=== PATIENT | female | born 1975 | race African-American/Black ===

== ENCOUNTER 2023-05-15 09:02 | Outpatient (OUT) | payer OTHER, SELFPAY ==
[2023-05-15 09:31] LABS: Basophils Absolute Auto 0.1 10^3/uL (0.0-0.1); Basophils Percent Auto 1.3 % (0.2-2.0); Eosinophils Absolute Auto 0.2 10^3/uL (0.0-0.7); Eosinophils Percent Auto 3.6 % (0.9-7.0); Hematocrit 37.7 % (36.0-48.0); Hemoglobin 12.1 g/dL (12.0-16.0); Immature Granulocytes Abs Auto 0.01 10^3/uL (0.00-0.03); Immature Granulocytes Pct Auto 0.2 % (0.0-0.5); Lymphocytes Absolute Auto 2.1 10^3/uL (1.2-3.8); Lymphocytes Percent Auto 38.6 % (20.5-60.0); Mean Corpuscular HGB Conc 32.1 g/dL (29.9-35.2); Mean Corpuscular Hemoglobin 30.3 pg (26.7-34.0); Mean Corpuscular Volume 94.3 fL (81.0-99.0); Mean Platelet Volume 10.6 fL (9.5-13.5); Monocytes Absolute Auto 0.3 10^3/uL (0.3-0.8); Monocytes Percent Auto 5.6 % (1.7-12.0); Neutrophils Absolute Auto 2.7 10^3/uL (1.4-6.5); Neutrophils Percent Auto 50.7 % (43.0-75.0); Platelet Count 315 10^3/uL (150-450); Red Cell Distribution Width 12.3 % (11.0-15.0); White Blood Count 5.3 10^3/uL (4.0-11.0)
[2023-05-15 09:41] LABS: Estimated Average Glucose 97 mg/dL
[2023-05-15 11:33] LABS: Alanine Aminotransferase 26 U/L (14-59); Albumin Globulin Ratio 0.7; Albumin Level 3.2 g/dL (3.4-5.0); Alkaline Phosphatase 61 U/L (46-116); Anion Gap 11.4; Aspartate Amino Transferase 16 U/L (15-37); BUN Creatinine Ratio 9.5; Bilirubin Direct 0.1 mg/dL (0.0-0.2); Bilirubin Total 0.3 mg/dL (0.2-1.0); Calcium 8.7 mg/dL (8.5-10.1); Carbon Dioxide 28.2 mmol/L (21.0-32.0); Chloride 105 mmol/L (98-107); Chol HDL Ratio 3.1; Cholesterol 247 mg/dL (<=200); Estimated GFR (African America >60 (>=60); Estimated GFR (Non-African Ame >60 (>=60); Globulin 4.5 g/dL; Glucose 79 mg/dL (74-106); HDL Cholesterol 79 mg/dL (40-60); Potassium 3.6 mmol/L (3.5-5.1); Sodium 141 mmol/L (136-145); Thyroid Stimulating Hormone 0.818 uIU/mL (0.358-3.740); Total Protein 7.7 g/dL (6.4-8.2); Triglycerides 55 mg/dL (<=150)
== END 2023-05-15 09:03 | disposition home or self-care (01) ==
LOC: LAB 09:07
PROVIDERS: PCP Family Medicine; Visit Provider Family Medicine
DX: Z00.00 Encounter for general adult medical examination without abnormal findings (principal); E55.9 Vitamin D deficiency, unspecified
CPT/HCPCS: 36415; 80048; 80061; 80076; 82306; 83036; 84443; 85025

== ENCOUNTER 2025-01-28 14:47 | Outpatient (REF) | payer OTHER, SELFPAY ==
--- OUTSIDE RECORDS SUMMARY | 2025-01-28 09:00 | XMS_ITS | Encounter Summary ---
Author Organization [facility] Address [address] [place] [address] Care Team Providers Care Public Transit Bus Driver Name Role Phone David Bello MD Primary Care Provider [phone] David Bello MD Unavailable Reason for Visit * ReasonCommentsGynecologic Exam Encounter Details DateTypeDepartmentCare Team (Latest Contact Info)Pmlluzynnzs61/19/2025 9:00 AM ESTProcedure Visit [facility] [address] [place] [address] Yoly Pedroza, LEOBARDO [address] [place] [address] Well woman exam with routine gynecological exam; Encounter for screening mammogram for malignant neoplasm of breast; Pelvic cramping; History of uterine fibroid Social History Tobacco UseTypesPacks/DayYears UsedDateSmoking Tobacco: NeverSmokeless Tobacco: NeverAlcohol UseStandard Drinks/WeekCommentsNever0 (1 standard drink = 0.6 oz pure alcohol)caffeine intake : noneSocial Connection and Isolation PanelAnswer Date RecordedIn a typical week, how many times do you talk on the phone with family, friends, or neighbors?More than three times a week05/14/2023How often do you get together with friends or relatives?More than three times a week 05/14/2023How often do you attend amish or moravian services?More than 4 times per year05/14/2023o you belong to any clubs or organizations such as amish groups, unions, fraternal or athletic groups, or school groups?Yes05/14/2023How often do you attend meetings of the clubs or organizations you belong to?1 to 4 times per year05/14/2023re you , , , , never , or living with a partner?Never akxtbcr6705/14/2023UDIT-CAnswerDate RecordedQ1: How often do you have a drink containing alcohol?Monthly or less 05/14/2023Q2: How many drinks containing alcohol do you have on a typical day when you are drinking?1 or Q3: How often do you have six or more drinks on one occasion?Never05/14/2023Overall Financial Resource Strain (CARDIA) AnswerDate RecordedHow hard is it for you to pay for the very basics like food, housing, medical care, and heating?Somewhat hard05/14/2023HQ-2AnswerDate RecordedPatient Health Questionnaire-2 Xmfsx797[facility] [place] of Occupational Health - Occupational Stress QuestionnaireAnswerDate RecordedDo you feel stress - tense, restless, nervous, or anxious, or unable to sleep at night because yourmind is troubled all the time - these days?Only a fhrvdh7005/14/2023 Exercise Vital SignAnswerDate RecordedOn average, how many days per week do you engage in moderate to strenuous exercise (like a brisk walk)?6 days05/14/2023On average, how many minutes do you engage in exercise at this level?30 min 05/14/2023Hunger Vital SignAnswerDate RecordedWithin the past 12 months, you worried that your food would run out before you got the money to buymore.Never true05/14/2023Within the past 12 months, the food you bought just didn't last and you didn't have money to get more.Never true05/14/2023RAPARE - TransportationAnswerDate RecordedIn the past 12 months, has lack of transportation kept you from medical appointments or from getting medications?No 05/14/2023In the past 12 months, has lack of transportation kept you from meetings, work, or from getting things needed for daily living?05/14/2023 Housing Stability Vital SignAnswerDate RecordedIn the last 12 months, was there a time when you were not able to pay the mortgage or rent on time?No05/14/2023In the last 12 months, how many places have you lived?In the last 12 months, was there a time when you did not have a steady place to sleep or slept in ashelter (including now)?05/14/2023CommentsUnknownSex and Gender InformationValueDate RecordedSex Assigned at NozscAgkfne71/26/2024 11:41 AM EST Legal XilLejrjk32/15/2023 7:19 PM EDTGender GcmjekqsJoxleh67/26/2024 11:41 AM ESTSexual OrientationNot on filedocumented as of this encounter Last Filed Vital Signs Vital SignReadingTime TakenCommentsBlood Vdqybfxj571/7801/28/2025 9:21 AM EST Pulse--Temperature--Respiratory Rate--Oxygen Saturation--Inhaled Oxygen Concentration--Qzklfx637 kg (269 lb)01/28/2025 9:21 AM ESTHeight--Body Mass Index44.0801/12/2025 2:41 PM ESTdocumented in this encounter Progress Notes * Yoly Pedroza NP - 01/28/2025 9:00 AM EST Reason for Appointment: Patient ID: Neil Ma is a 49 y.o. female who presents for Gynecologic Exam Patient presents today for Annual Exam. MEDICATIONS Current Outpatient Medications Medication Instructions ??? DULoxetine (CYMBALTA) 30 mg, Oral, Daily ??? losartan-hydroCHLOROthiazide (Hyzaar) 50-12.5 MG tablet 1 tablet, Oral, Daily ??? terbinafine (LAMISIL) 250 mg, Oral, Daily ALLERGIES Allergies Allergen Reactions ??? Penicillins Unknown PROBLEMS Active Ambulatory Problems Diagnosis Date Noted ??? Arthralgia 05/14/2023 ??? Chronic pain of both knees 05/14/2023 ??? Superficial thrombophlebitis of left leg 05/14/2023 ??? Thyromegaly 05/14/2023 ??? Vitamin D deficiency 05/14/2023 ??? Fibromyalgia 05/14/2023 ??? Benign essential hypertension 05/14/2023 ??? Class 3 severe obesity due to excess calories with serious comorbidity and body mass index (BMI) of 40.0 to 44.9 in adult ([facility]) 05/14/2023 ??? Hypersomnia 05/14/2023 ??? Lipoma of torso 05/14/2023 ??? Cough due to AMOL inhibitor 06/11/2023 ??? Dyslipidemia 02/19/2024 Resolved Ambulatory Problems Diagnosis Date Noted ??? Enlarged uterus 05/14/2023 ??? LLQ pain 05/14/2023 Past Medical History: Diagnosis Date ??? Anemia ??? Headache ??? Hx of being hospitalized ??? Hx of blood clots ??? Seizure disorder (HCC) HISTORY PAST MEDICAL HISTORY SOCIAL HISTORY Past Medical History: Diagnosis Date ??? Anemia ??? Fibromyalgia ??? Headache ??? Hx of being hospitalized emergency blood transfusion ??? Hx of blood clots superficical leg blood clots ??? Seizure disorder (HCC) Social History Tobacco Use ??? Smoking status: Never ??? Smokeless tobacco: Never Substance Use Topics ??? Alcohol use: Never Comment: caffeine intake : none ??? Drug use: Never FAMILY HISTORY Family History Problem Relation Name Age of Onset ??? Diabetes Mother Jerson ??? Arthritis Mother Jerson ??? Hypertension Mother Jerson ??? Diabetes Father Jerson ??? Arthritis Maternal Grandmother Carol ??? Heart disease Paternal Grandfather Michael ??? Heart disease Paternal Grandmother Lindy ??? Asthma Son Ruiz ??? Learning disabilities Sister Akida ??? Mental illness Sister Akida ??? Intellectual Disability Sister Akida SURGICAL HISTORY Past Surgical History: Procedure Laterality Date ??? BREAST SURGERY 2012 breast reduction ??? TUBAL LIGATION 2008 REVIEW OF SYSTEMS Review of Systems: Review of Systems Constitutional: Negative. HENT: Negative. Eyes: Negative. Respiratory: Negative. Cardiovascular: Negative. Gastrointestinal: Negative. Genitourinary: Positive for menstrual problem. Intermittent low pelvic cramping with a history of uterine fibroids Musculoskeletal: Negative. Skin: Negative. Neurological: Negative. All other systems reviewed and are negative. Hematological: Negative. Endocrine: Negative. Allergic/Immunologic: Negative. OBJECTIVE Objective: Physical Exam Constitutional: Appearance: Normal appearance. Genitourinary: Right Adnexa: not tender and no mass present. Left Adnexa: not tender and no mass present. No cervical discharge. Breasts: Breasts are soft. Right: Normal. Left: Normal. HENT: Head: Normocephalic. Nose: Nose normal. Mouth/Throat: Mouth: Mucous membranes are moist. Cardiovascular: Rate and Rhythm: Normal rate. Pulmonary: Effort: Pulmonary effort is normal. Abdominal: General: Bowel sounds are normal. Palpations: Abdomen is soft. Musculoskeletal: General: Normal range of motion. Cervical back: Normal range of motion. Neurological: General: No focal deficit present. Mental Status: She is alert. Skin: General: Skin is warm and dry. Psychiatric: Mood and Affect: Mood normal. Vitals and nursing note reviewed. Exam conducted with a facsimile operator present. Vitals: Estimated body mass index is 40.15 kg/m?? as calculated from the following: Height as of 01/12/25: 5' 5.5 . Weight as of 01/12/25: 245 lb. BP: No LMP recorded. ASSESSMENT & PLAN ICD-10-CM 1. Well woman exam with routine gynecological exam Z01.419 THIN PREP TIS PAP AND HR HPV DNA 2. Encounter for screening mammogram for malignant neoplasm of breast Z12.31 Bilateral screening mammogram Bilateral screening mammogram Assessment/Plan Annual Exam: Patient presents today for an annual exam. Patient states she is doing well and has no complaints. Pap was obtained without difficulty. Discussed Control options with patient to help with bleeding states not as bad it is tolerable. Patient did have ablation she states helped for about 12 years she did have Essure also. Patient did have Fibroid removal also. Patient does have some pelvic cramping we will order testing. Orders Placed This Encounter Procedures ??? Bilateral screening mammogram Follow Up: Patient is to return in one year for annual unless needed otherwise. Documented by Tabatha Guy LPN on behalf of: Yoly Pedroza NP documented in this encounter Plan of Treatment DateTypeDepartmentCare Team (Latest Contact Info)Dkezdxegxqj59/08/2025 11:00 AM ESTOffice Visit [facility] [address] [place] [id number] Nolberto Mcgowan DPM [address] [address] NameTypePriorityAssociated DiagnosesOrder ScheduleBilateral screening mammogram ImagingRoutine Encounter for screening mammogram for malignant neoplasm of breast Expected: 01/28/2025 (Approximate), Expires: 03/30/2026THIN PREP TIS PAP AND HR HPV DNAPathology and CytologyRoutine Well woman exam with routine gynecological exam Ordered: 01/28/2025US Pelvis w/ TVImagingRoutine Pelvic cramping History of uterine fibroid Expected: 01/28/2025, Expires: 07/28/2025documented as of this encounter Visit Diagnoses Diagnosis Well woman exam with routine gynecological exam Routine gynecological examination Encounter for screening mammogram for malignant neoplasm of breast Pelvic cramping History of uterine fibroid documented in this encounter Care Teams Team MemberRelationshipSpecialtyStart DateEnd Date David Bello MD [address] [place] [id number] [facility] - [facility] David Bello MD [address] [place] [phone] PCP - [facility]03/12/24documented as of this encounter
--- OUTSIDE RECORDS SUMMARY | 2025-01-28 14:51 | XMS_ITS | Clinical Summary ---
Author Organization [facility] Address [address] [place] [address] Care Team Providers Care Physicist Acoustics Name Role Phone David Bello MD Primary Care Provider [phone] David Bello MD Unavailable Allergies Active AllergyReactionsCriticalityNoted EkdzFmmsuflmJnujflpynrtKbvzzoh25/04/2024 Medications MedicationSigDispense QuantityRefillsLast FilledStart DateEnd DateStatus losartan-hydroCHLOROthiazide (Hyzaar) 50-12.5 MG tablet Indications:Benign essential hypertensionTAKE 1 TABLET BY MOUTH EVERY DAY 30 tablet 5Active DULoxetine (Cymbalta) [address] capsule Indications:FibromyalgiaTAKE 1 CAPSULE BY MOUTH EVERY DAY 30 capsule 1105Active terbinafine (LamISIL) 250 MG tablet Indications:Onychomycosis of ToenailsTake 1 tablet (250 mg) by mouth Daily 30 tablet 515Active Active Problems ProblemNoted DateDiagnosed YgcfQhwqngcabuka28/10/2024Cough due to AMOL inhibitor 06/11/2023 Assessment & Plan (06/11/2023 2:17 PM EDT): Developed cough due to lisinopril and stop. Change to losartan. Bnpgjmzwdk27/04/2024hronic pain of both knees05/14/2023Superficial thrombophlebitis of left leg05/14/20233202Ibfiljdolgt64/04/2024Vitamin D deficiency 05/14/20236826Yvndizsazgeq73/04/2024 Assessment & Plan (02/19/2024 2:30 PM EST): Pain stable and continue cymbalta. Increase activity and walk regularly. Assessment & Plan (08/20/2023 2:57 PM EDT): Pain stable and continue cymbalta. Increase activity and walk regularly. Assessment & Plan (06/11/2023 2:17 PM EDT): Pain stable and continue cymbalta. Increase activity and walk regularly. Assessment & Plan (05/14/2023 2:25 PM EST): Pain stable and continue cymbalta. Increase activity and walk regularly. Benign essential lnbxccrzpixk39/04/2024 Assessment & Plan (02/19/2024 2:29 PM EST): BP elevated and resume medication. Need to monitor PRN. Discussed DASH diet. Assessment & Plan (08/20/2023 2:57 PM EDT): BP controlled and monitor PRN. Assessment & Plan (06/11/2023 2:17 PM EDT): BP controlled but cough from lisinopril and stop. Try hyzaar. Continue to monitor PRN. Discussed DASH diet. Assessment & Plan (05/14/2023 2:25 PM EST): BP elevated and start treatment for HTN. Monitor PRN. Discussed DASH diet. Class 3 severe obesity due to excess calories with serious comorbidity and body mass index (BMI) of40.0 to 44.9 in adult05/14/2023 Assessment & Plan (02/19/2024 2:29 PM EST): Discussed proper diet and regular aerobic exercise. Recommend Weight Watchers and need to limit calories and smaller portions. Need to increase activity and regular aerobic exercise several days a week for 30 minutes at a time. Assessment & Plan (06/11/2023 2:17 PM EDT): Weight unchanged over the past month. Discussed proper diet and regular aerobic exercise. RecommendWeight Watchers and need to limit calories and smaller portions. Need to increase activity and regular aerobic exercise several days a week for 30 minutes at a time. Assessment & Plan (05/14/2023 2:26 PM EST): Discussed proper diet and regular aerobic exercise. Recommend Weight Watchers and need to limit calories and smaller portions. Need to increase activity and regular aerobic exercise several days a week for 30 minutes at a time. Xdotjtpeang44/04/2024 Assessment & Plan (02/19/2024 2:30 PM EST): Signs of JULIA and check sleep study. Assessment & Plan (06/11/2023 2:17 PM EDT): Signs of JULIA and check sleep study. Assessment & Plan (05/14/2023 2:26 PM EST): Signs of JULIA and check sleep study. Lipoma of torso05/14/2023 Assessment & Plan (05/14/2023 2:26 PM EST): Painful lump and likely lipoma. Refer to surgeon. Resolved Problems ProblemNoted DateDiagnosed DateResolved DateEnlarged LLQ pain Encounters DateTypeDepartmentCare UygmXurmkmyarco38/19/2025 9:00 AM ESTProcedure Visit [facility] [address] [facility] [place] [place] [address] Yoly Pedroza NP Well woman exam with routine gynecological exam; Encounter for screening mammogram for malignant neoplasm of breast; Pelvic cramping; History of uterine pwfnged9501/28/2025amboo flowsheet [facility] [address] [facility] [place] [address] Yoly Pedroza NP 01/12/2025 2:40 PM ESTOffice Visit [facility] [address] [place] [address] Nolberto Mcgowan, DPDaria Pain due to onychomycosis of toenails of both feet (Primary Dx); Izngswpinelvi42/03/2025amboo flowsheet [facility] [address] [place] [address] Nolberto Mcgowan DPM 01/12/20256473Fysaex51/23/2025Refill [facility] [address] [place] [address] David Bello MD Fibromyalgiafrom Last 3 Months Family History Medical HistoryRelationNameCommentsDiabetesFatherAlphonsoArthritisMaternal GrandmotherDelorisArthritisMotherAlphonsoDiabetesMotherAlphonsoHypertension MotherAlphonsoHeart diseasePaternal GrandfatherLorenzoHeart diseasePaternal GrandmotherDorothyIntellectual DisabilitySisterAkidaLearning disabilitiesSister AkidaMental illnessSisterAkidaAsthmaSon 2RohanRelationNameStatusCommentsFather AlphonsoAliveMaternal GrandmotherDelorisAliveMotherAlphonsoAlivePaternal GrandfatherLorenzoAlivePaternal GrandmotherDorothyAliveSisterAkidaAliveSon 13 sonsSon 2RohanAlive Social History Tobacco UseTypesPacks/DayYears UsedDateSmoking Tobacco: NeverSmokeless Tobacco: Never Tobacco Cessation:Counseling Given: Yes Alcohol UseStandard Drinks/WeekCommentsNever0 (1 standard drink = 0.6 oz pure alcohol)caffeine intake : noneSocial Connection and Isolation PanelAnswerDate RecordedIn a typical week, how many times do you talk on the phone with family, friends, or neighbors?More than three times a week05/14/2023How often do you get together with friends or relatives?More than three times a week05/14/2023How often do you attend temple or episcopal services?More than 4 times per year 05/14/2023o you belong to any clubs or organizations such as temple groups, unions, fraternal or athletic groups, or school groups?Yes05/14/2023How often do you attend meetings of the clubs or organizations you belong to?1 to 4 times per year05/14/2023re you , , , , never , or living with a partner?Never wjcgosh5105/14/2023UDIT-CAnswerDate RecordedQ1: How often do you have a drink containing alcohol?Monthly or less05/14/2023Q2: How many drinks containing alcohol do you have on a typical day when you are drinking?1 or Q3: How often do you have six or more drinks on one occasion?Never05/14/2023Overall Financial Resource Strain (CARDIA)AnswerDate RecordedHow hard is it for you to pay for the very basics like food, housing, medical care, and heating?Somewhat hard05/14/2023HQ-2AnswerDate RecordedPatient Health Questionnaire-2 Wwgyn358Finintermountain healthcare [place] of Occupational Health - Occupational Stress QuestionnaireAnswerDate RecordedDo you feel stress - tense, restless, nervous, or anxious, or unable to sleep at night because your mind is troubled all the time - these days?Only a cghooc2905/14/2023Exercise Vital SignAnswerDate RecordedOn average, how many days per week do you engage in moderate to strenuous exercise (like a brisk walk)?6 days05/14/2023On average, how many minutes do you engage in exercise at this level?30 min05/14/2023Hunger Vital SignAnswerDate RecordedWithin the past 12 months, you worried that your food would run out before you got the money to buymore.Never true05/14/2023 Within the past 12 months, the food you bought just didn't last and you didn't have money to get more.Never true05/14/2023RAPARE - TransportationAnswerDate RecordedIn the past 12 months, has lack of transportation kept you from medical appointments or from getting medications?No05/14/2023In the past 12 months, has lack of transportation kept you from meetings, work, or from getting things needed for daily living?No05/14/2023Housing Stability Vital SignAnswerDate RecordedIn the last 12 months, was there a time when you were not able to pay the mortgage or rent on time?No05/14/2023In the last 12 months, how many places have you lived?In the last 12 months, was there a time when you did not have a steady place to sleep or slept in ashelter (including now)?No 05/14/2023CommentsUnknownSex and Gender InformationValueDate RecordedSex Assigned at PsixuHfmbnw64/26/2024 11:41 AM ESTLegal IazXhteux69/15/2023 7:19 PM EDTGender OjfdzhfkAbnrcn16/26/2024 11:41 AM ESTSexual OrientationNot on file Last Filed Vital Signs Vital SignReadingTime TakenCommentsBlood Iqrgsqup627/7801/28/2025 9:21 AM EST Tvyzr600802/19/2024 2:06 PM LSGCtiobokgtvo09.4 ??C (97.5 ??F)02/19/2024 2:06 PM ESTRespiratory Ihds953003/14/2024 2:41 PM ESTOxygen Wlpkwsfhbg23%02/19/2024 2:06 PM ESTInhaled Oxygen Concentration--Xjchlw491 kg (269 lb)01/28/2025 9:21 AM EST Xbrvyj015.4 cm (5' 5.5 )01/12/2025 2:41 PM ESTBody Mass Index44.0801/12/2025 2:41 PM EST Plan of Treatment DateTypeDepartmentCare Team (Latest Contact Info)Vlztejqlrje92/08/2025 11:00 AM ESTOffice Visit [facility] [address] [place] [address] Nolberto Mcgowan DPM [address] [address] Health MaintenanceDue DateLast DoneCommentsCT Zpsdgoerhnhd1976Colonoscopy 1976Colorectal Cancer Djyceplnd1976FIT-DNA1976FIT1976 FOBT1976 4612Ivabzsvblpygy1976Pap Smear01/30/1997Cervical Cancer Qolmdaesf42/21/2006HPV/Wcnrfx1801/30/20061071Cgfyyxhuc45/19/026050/OVID-19 Vaccine ( season)/, 07/09/2020Influenza Vaccine (#1)2024Pneumococcal Vaccine: Pediatrics (0 to 5 Years) and At-Risk Patients (6 to 64 Years)Aged OutNo longer eligible based on patient's age to complete this topic Procedures Procedure NamePriorityDate/TimeAssociated DiagnosisCommentsBI MAMMOGRAM SCREENING TOMOSYNTHESIS KHUXVXDSV80/19/2024 2:02 PM EDT from Last 3 Months or Most Recently Relevant to Health Maintenance Results * Bilateral screening mammogram with tomosynthesis (05/29/2023 2:02 PM EDT) Anatomical RegionLateralityModalityBreastBilateralMammographySpecimen (Source) Anatomical Location / LateralityCollection Method / VolumeCollection Time Received Time05/29/2023 2:02 PM EDT Impressions 05/29/2023 2:07 PM EDT No mammographic evidence of malignancy. Routine follow-up recommended in one year. ?? RESULT CODE: 2 ? Benign Findings(s) ? DENSITY CODE: 2 (approximately 25-50% glandular) ? FOLLOW UP: 1YR ? THE FALSE-NEGATIVE RATE OF MAMMOGRAPHY IS APPROXIMATELY 10%. ? IMAGING OF A PALPABLE ABNORMALITY MUST BE BASED ON CLINICAL GROUNDS. ? PATIENT WAS ENTERED INTO A REMINDER SYSTEM WITH A TARGET DUE DATE FOR THE NEXT MAMMOGRAM. ? Impression dictated by: Cruz Barnes M.D.05/29/2023 2:05 PM ? Dictation Location: [facility] ? Transcribed By: ? PWS ?05/29/23 1405 ? Dictated By: ?Cruz Barnes S DO ?05/29/23 1402 ? Signed By: <Electronically signed by Cruz Barnes, DO in OV> ? 05/29/23 1405 Narrative 05/29/2023 2:07 PM EDT [facility] ?[facility] [place] ?[address] ? [place] [address] ? Mammography Report ? Signed ? Patient: Ma,Latishesyon A ?MR#: ?? [id number] ? : 1975 ?Acct:[id number] ? Age/Sex: 48 / F ?ADM Date: 05/29/23 ? Loc: [place] ?Room: ?Type: REG CLI ?? Attending Dr: David Bello MD ?? Copies to: David Bello MD ? Ordering Provider: David Bello MD ?? Date of Service: 05/29/23 ?? MM/MM screening mammo BI w/CAD: SCREENING ? BILATERAL ??Screening ??Full Field digital mammogram with 3-D imaging. ? Full field digital CC and MLO imaging performed. ??CAD utilized. ? COMPARISON: 04/23/2018, 10/09/2017 ? HISTORY: Annual screening ? BREAST COMPOSITION: Scattered fibroglandular densities of the breast parenchyma identified ? BENIGN BREAST CALCIFICATIONS: Present ? VASCULAR CALCIFICATIONS: None ? DEVELOPING ARCHITECTURAL DISTORTION: None ? DEVELOPING BREAST NODULE: No developing nodule. Stable region of architectural distortion in the posterior portion of the right breast. ? DEVELOPING MALIGNANT CALCIFICATIONS: None ? AXILLARY LYMPH NODES: Normal ? POSTSURGICAL CHANGES: None ? MM/MM screening mammo BI w/CAD ?? Procedure Note Radiology, Radiologist, MD - 05/29/2023 [facility] [place] [address] [place] [address] Mammography Report Signed Patient: Neil Ma AMR#: [id number] : 1975Acct:[id number] Age/Sex: 48 / FADM Date: 05/29/23 Loc: [place] Room:Type: [facility] Attending Dr: David Bello MD Copies to: David Bello MD Ordering Provider: David Bello MD Date of Service: 05/29/23 MM/MM screening mammo BI w/CAD: SCREENING BILATERAL Screening Full Field digital mammogram with 3-D imaging. Full field digital CC and MLO imaging performed. CAD utilized. COMPARISON: 04/23/2018, 10/09/2017 HISTORY: Annual screening BREAST COMPOSITION: Scattered fibroglandular densities of the breastparenchyma identified BENIGN BREAST CALCIFICATIONS: Present VASCULAR CALCIFICATIONS: None DEVELOPING ARCHITECTURAL DISTORTION: None DEVELOPING BREAST NODULE: No developing nodule. Stable region ofarchitectural distortion in the posterior portion of the right breast. DEVELOPING MALIGNANT CALCIFICATIONS: None AXILLARY LYMPH NODES: Normal POSTSURGICAL CHANGES: None MM/MM screening mammo BI w/CAD IMPRESSION: No mammographic evidence of malignancy. Routine follow-up recommended inone year. RESULT CODE: 2 Benign Findings(s) DENSITY CODE: 2 (approximately 25-50% glandular) FOLLOW UP: 1YR THE FALSE-NEGATIVE RATE OF MAMMOGRAPHY IS APPROXIMATELY 10%. IMAGING OF A PALPABLE ABNORMALITY MUST BE BASED ON CLINICAL GROUNDS. PATIENT WAS ENTERED INTO A REMINDER SYSTEM WITH A TARGET DUE DATE FOR THENEXT MAMMOGRAM. Impression dictated by: Cruz Barnes M.D.05/29/2023 2:05 PM Dictation Location: S01 Transcribed By: PWS 05/29/23 1405 Dictated By: Cruz Barnes DO 05/29/23 1402 Signed By: <Electronically signed by Cruz Barnes DO in OV> 05/29/23 1405 Authorizing ProviderResult TypeResult StatusMarc Ace GUAJARDOIMAlberto BI PROCEDURES Final Result from Last 3 Months or Most Recently Relevant to Health Maintenance Insurance Care Teams Team MemberRelationshipSpecialtyStart DateEnd Date David Bello MD [address] [place] [address] [facility] - [facility] David Bello MD [address] [place] [address] PCP - [facility]03/12/24
--- OUTSIDE RECORDS SUMMARY | 2025-01-28 14:51 | XMS_ITS | Clinical Summary ---
Author Organization [facility] Address [address] [place], [place] [address] Care Team Providers Care Salesperson Terrazzo Tiles Name Role Phone David Bello MD Primary Care Provider [phone] Allergies Active AllergyReactionsCriticalityNoted EmgeEfvtoqcwJovclfidgslPyppjnm67/25/2011 Medications MedicationSigDispense QuantityRefillsLast FilledStart DateEnd DateStatus tizanidine (ZANAFLEX) 4 mg ORAL tablet Take by mouth. at bedtime for 1 week, then increase to 2 at bedtime. 60 tablet ctive Additional Information Patient not taking.Reason: Discontinued by Patient, Reported on 12/22/2019 Rizatriptan Benzoate (MAXALT-CRYPTOLOGIC SUPERVISOR) 10 mg ORAL disintegrating tablet Take 1 tablet by mouth. AT ONSET OF HEADACHE. MAY REPEAT AFTER 2 HOURS. DO NOT EXCEED 30 MG PER DAY. 12 tablet 11007/04/2010ctive duloxetine (CYMBALTA) 30 mg ORAL capsule Take 1 capsule by mouth once daily.ctive Active Problems ProblemNoted DateDiagnosed DateStatus post bilateral breast gfamaystl40/16/2012 Breast vpcrmjpjvau99/02/2011ack pain01/11/2011Shoulder pain01/11/20111.2 Migraine with aura, intractable [346.01]07/04/2010 Family History Medical HistoryRelationCommentsHypertensionFatherHypertensionMotherRelation StatusCommentsBrother 1AliveBrother 2AliveFatherAliveMotherAliveSister 1Alive Sister 2AliveSister 3AliveSister 4AliveSon 1AliveSon 2AliveSon 3Alive Social History Tobacco UseTypesPacks/DayYears UsedDateSmoking Tobacco: NeverSmokeless Tobacco: NeverAlcohol UseStandard Drinks/WeekCommentsYes0 (1 standard drink = 0.6 oz pure alcohol)rarePHQ-2AnswerDate RecordedPHQ-2 abnvq726Area Deprivation IndexAnswerDate RecordedNational Score (1-100), lower number is lower riskNot on file02/16/2020State Score (1-10), lower number is lower riskNot on file 02/16/2020Data from: https://www.neighborhoodatlas.medicine.[facility].edu/. Last address used for calculationNot on file02/16/2020CommentsNoSex and Gender InformationValueDate RecordedSex Assigned at HwknqWijvlf37/12/2020 12:32 PM EDTLegal ZleFothzu30/02/2012 8:33 AM ESTGender TcncboipUagojo33/12/2020 12:32 PM EDTSexual TwiiuwpwkvfJvjywplw93/12/2020 12:32 PM EDTOccupationIndustryJob Start DateJob End DateNot on fileNot on fileNot on fileNot on file Last Filed Vital Signs Vital SignReadingTime TakenCommentsBlood Xpwdqtet726/8312/22/2019 1:12 PM EDT Fpvch854312/22/2019 1:12 PM SLDJzqywajhrvl72.4 ??C (97.5 ??F)05/25/2011 1:14 PM EDTRespiratory Pdsd823405/25/2011 3:00 PM EDTOxygen Ndolmliuzr16%05/25/2011 3:00 PM EDTInhaled Oxygen Concentration--Iqkaan631.7 kg (252 lb 14.4 oz)12/22/2019 1:12 PM APJIghbrx581.6 cm (5' 6 )12/22/2019 1:12 PM EDTBody Mass Index40.82 12/22/2019 1:12 PM EDT Plan of Treatment Health MaintenanceDue DateLast DoneCommentsAnxiety Zirtcjeok94/21/1994Depression Odpgvnwmx60/21/1994HIV Kmuleadix36/21/1994DTaP,Tdap,Td Vaccine (1 - Tdap) 01/30/1995Hepatitis B Vaccine (1 of 3 - 19+ 3-dose series)01/30/1995Cervical Cancer Qzzszdhuq86/21/1997Mammogram Tbclrdoit67/21/2016CT Qpmoiubxgyrb96/21/2021 Cologuard (FIT-DNA)01/30/20219178Inrodikxfcv93/21/2021olorectal Cancer Screening 01/30/2021Fecal Occult Blood01/30/2021ipid Qfsivovrm56/21/2021igmoidoscopy 01/30/2021iabetes Pvbcaprfj90Covid-19 Vaccine ( - season)2024Influenza Vaccine (#1)2024Hepatitis C ScreeningCompleted 12/22/2019 Procedures Procedure NamePriorityDate/TimeAssociated DiagnosisComments*HEP C ABRoutine 12/22/2019 2:29 PM EDT Myalgia COMPREHENSIVE METABOLIC QJSDFMcfwach12/12/2020 2:29 PM EDT Myalgia from Last 3 Months or Most Recently Relevant to Health Maintenance Results * HEP REMOTE PANEL BL (12/22/2019 2:29 PM EDT)ComponentValueRef RangeTest Method Analysis TimePerformed AtPathologist SignatureHep B Core Ab, TotalNegative Avhlwgkz36/13/2020 11:13 AM EDTCleveland Clinic LaboratoriesHep C Antibody IA KhvdajerTlpzrclj29/13/2020 11:14 AM EDTCleveland Clinic LaboratoriesHBsAg OggqobaoTgoghqmp80/13/2020 11:13 AM EDTCleveland Clinic LaboratoriesHep B Surface Ab, SzrsSgyihaakSydyvcpu09/13/2020 11:14 AM EDTCleveland Clinic LaboratoriesComment:NEGATIVESpecimen (Source)Anatomical Location / Laterality Collection Method / VolumeCollection TimeReceived EayuWbqyh07/12/2020 2:29 PM EDT1 2:31 PM EDT Narrative Authorizing ProviderResult TypeResult StatusSusaayaka Block MDLABORATORYFinal ResultPerforming OrganizationAddressCity/State/ZIP CodePhone Number [facility] [address] [place] [address] [facility] [address] [place] [address] * (ABNORMAL) COMP METABOLIC PANEL (12/22/2019 2:29 PM EDT)ComponentValueRef RangeTest MethodAnalysis TimePerformed AtPathologist SignatureProtein, Total 7.36.3 - 8.0 g/dL12/22/2019 3:32 PM [facility] LaboratoryAlbumin4.03.9 - 4.9 g/dL12/22/2019 3:32 PM [facility] LaboratoryCalcium9.38.5 - 10.2 mg/dL12/22/2019 3:32 PM [facility] LaboratoryBilirubin, Total0.30.2 - 1.3 mg/dL12/22/2019 3:32 PM [facility] LaboratoryAlkaline Muswabqwkqs19 34 - 123 U/L1 3:32 PM [facility] CluljkzccvEAF5910 - 35 U/L 12/22/2019 3:32 PM [facility] QykhazdlmsEzhzywh5148 - 99 mg/dL12/22/2019 3:32 PM [facility] LaboratoryComment: The [place] Diabetes Association (ADA) provides guidance for cutoff values for fasting glucose and random glucose. The ADA defines fasting as no caloric intake for at least 8 hours. Fasting plasma glucose results between 100 to 125 mg/dL indicate increased risk for diabetes (prediabetes). Fasting plasma glucose results greater than or equal to 126 mg/dL meet the criteria for diagnosis of diabetes. In the absence of unequivocal hyperglycemia, results should be confirmed by repeat testing. In a patient with classic symptoms of hyperglycemia or hyperglycemic crisis, random plasma glucose results greater than or equal to 200 mg/dL meet the criteria for diagnosis of diabetes. Reference: Standards of Medical Care in Diabetes 2016, [place] Diabetes Association. Diabetes Care. 2016.39(Suppl 1). BUN77 - 21 mg/dL12/22/2019 3:32 PM [facility] LaboratoryCreatinine0.740.58 - 0.96 mg/dL12/22/2019 3:32 PM [facility] LesnugfnacTmghcj100752 - 144 mmol/L1 3:32 PM [facility] LaboratoryPotassium3.93.7 - 5.1 mmol/L 12/22/2019 3:32 PM [facility] PzyltxxfpvVwbmbwwj669(H)97 - 105 mmol/L 12/22/2019 3:32 PM [facility] EyhckwuvkhTQ15086 - 30 mmol/L1 3:32 PM [facility] LaboratoryAnion Gap99 - 18 mmol/L1 3:32 PM [facility] PmxysnxgthMYM979 - 38 U/L1 3:32 PM [facility] LaboratoryeGFR->6012/22/2019 3:32 PM [facility] eGFR-All Other Races>60.12/22/2019 3:32 PM [facility] LaboratoryComment: eGFR (Estimated GFR) Units of measure: mL/min/1.73 meters squared eGFR is derived from the reexpressed MDRD Study equation using the following parameters: serum creatinine, age, gender and race. The creatinine assay has been calibrated to be traceable to IDMS. An eGFR <60 mL/min/1.73m2 for >3 months is consistent with chronic kidney disease. Refer to KDOQI guidelines for clinical interpretation. In patients with unstable renal function, e.g. those with acute kidney injury, the eGFR may not accurately reflect actual GFR. Specimen (Source)Anatomical Location / LateralityCollection Method / Volume Collection TimeReceived YvdjZclhf00/12/2020 2:29 PM EDT1 2:31 PM EDT Narrative Authorizing ProviderResult TypeResult StatusSujose Block MDLABORATORYFinal ResultPerforming OrganizationAddressCity/State/ZIP CodePhone Number [facility] [address] [facility] [place] [address], [facility] from Last 3 Months or Most Recently Relevant to Health Maintenance Insurance * Guarantor: Neil Ma AAccount TypeRelation to PatientDate of PhoneBilling GqaqvmsLypifrneNxof1976 [address] [place] [address] Care Teams Team MemberRelationshipSpecialtyStart DateEnd Date David Bello MD PCP - GeneralInternal Medicine11/30/10
--- OUTSIDE RECORDS SUMMARY | 2025-01-28 14:51 | XMS_ITS | CCD ---
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 Gomesrythrocyte distribution width (RBC) [Ratio]12.1 %Mnvkjx32.0-15.0 The [facility] HospitalComment on above:Performed By: #### CBC #### [facility] [address] [place] [address] Dr. Alonzo BurciagaHematocrit (Bld) [Volume fraction]38.4 %Acxbdg65.0-48.0The [facility] HospitalComment on above:Performed By: #### CBC #### [facility] [address] [place] [address] Dr. Alonzo BurciagaHemoglobin (Bld) [Mass/Vol]12.3 g/eSLjblls65.0-16.0The [facility] HospitalComment on above:Performed By: #### CBC #### [facility] [address] [place] [address] Dr. Alonzo Berg #0.01 10e3/ulNormal0.00-0.03The [facility] Hospitalment on above:Performed By: #### CBC #### [facility] [address] [place] [address] Dr. Alonzo Berg %0.2 %Normal0.0-0.5The [facility] HospitalComment on above: Performed By: #### CBC #### [facility] [address] [place] [address] Dr. Alonzo LinMPH #2.3 103/ulNormal1.2-3.8The [facility] HospitalComment on above:Performed By: #### CBC #### [facility] [address] [place] [address] Dr. Alonzo Linmphocytes/100 WBC (Bld)39.2 %Kzjwfj35.5-60.0The [facility] HospitalComment on above:Performed By: #### CBC #### [facility] [address] [place] [address] Dr. Alonzo GatesUAL DIFF REQNONormalThe [facility] HospitalComment on above: Performed By: #### CBC #### [facility] [address] [place] [address] Dr. Alonzo Hollis (RBC) [Entitic mass]30.1 smAusyfm94.7-34.0The [facility] HospitalComment on above:Performed By: #### CBC #### [facility] [address] [place] [address] Dr. Alonzo Hollis (RBC) [Mass/Vol]32.0 g/wGGcmkfy73.9-35.2The [facility] HospitalComment on above:Performed By: #### CBC #### [facility] [address] [place] [address] Dr. Alonzo Hollis (RBC) [Entitic vol]94.1 aDJrnmlk92.0-99.0The [facility] HospitalComment on above:Performed By: #### CBC #### [facility] [address] [place] [address] Dr. Alonzo Willams #0.4 103/ulNormal0.3-0.8The [facility] HospitalComment on above:Performed By: #### CBC #### [facility] [address] [place] [address] Dr. Alonzo Watsonocytes/100 WBC (Bld)6.9 %Normal1.7-12.0The [facility] Comment on above:Performed By: #### CBC #### [facility] [address] [place] [address] Dr. Alonzo Nunn #3.0 103/ulNormal1.4-6.5The [facility] HospitalComment on above:Performed By: #### CBC #### [facility] [address] [place] [address] Dr. Alonzo Wrenutrophils/100 WBC (Bld)50.3 %Aihwmg08.0-75.0The [facility] HospitalComment on above:Performed By: #### CBC #### [facility] [address] [address] [address] Alonzo BurciagaPlatelet mean volume (Bld) [Entitic vol]11.1 fLNormal9.5-13.5The [facility] HospitalComment on above:Performed By: #### CBC #### [facility] [address] [address] [address] Alonzo BurciagaPLT253 103/zkNufmpz595-015Mmf [facility] HospitalComment on above: Performed By: #### CBC #### [facility] [address] [address] [address] Alonzo BurciagaRBC4.08 106/ulCritically low4.20-5.40The [facility] HospitalComment on above:Performed By: #### CBC #### [facility] [address] [address] [address] Alonzo BurciagaWBC6.0 103/ulNormal4.0-11.0The [facility] HospitalComment on above: Performed By: #### CBC #### [facility] [address] [address] [address] Alonzo BurciagaGLYCOHEMOGLOBIN A1Con 71-63-2485QEE RECOMMENDATIONADA THERAPEUTIC TARGET 6.0 - 7.0 ACTION SUGGESTED > 7.0NoGuernsey Memorial HospitalComment on above:Performed By: #### A1C #### [facility] [address] [address] [address] Alonzo BurciagaGlucose [Mass/Vol]100 mg/dLNoGuernsey Memorial HospitalComment on above:Performed By: #### A1C #### [facility] [address] [address] [address] Alonzo BurciagaHbA1c (Bld) [Mass fraction]5.1 %Normal<=6.0[facility] [place] Comment on above:Performed By: #### A1C #### [facility] [address] [address] [address] Alonzo BurciagaLIPID PROFILEon 70-78-3097NQAZ-HDL RATIO NORMSEE BELOWDoctors HospitalComment on above:Result Comment: 3.3 - 4.4 LOW RISK 4.4 - 7.1 AVERAGE RISK 7.1 - 11.0 MODERATE RISK >11.0 HIGH RISKPerformed By: #### LIPID, BMP, LIVER, TSH #### [facility] [address] [address] [address] Alonzo BurciagaCholesterol [Mass/Vol]184 mg/dLNormal<=200[facility] [place] Comment on above:Performed By: #### LIPID, BMP, LIVER, TSH #### [facility] [address] [address] [address] Alonzo BurciagaCholesterol in HDL [Mass/Vol]65 mg/dLDoctors Hospital Comment on above:Performed By: #### LIPID, BMP, LIVER, TSH #### [facility] [address] [address] [address] Alonzo Canelaesterol in LDL [Mass/Vol]105.2 mg/dLDoctors HospitalComment on above:Performed By: #### LIPID, BMP, LIVER, TSH #### [facility] [address] [address] [address] Alonzo Ceballos.total/Cholesterol in HDL [Mass ratio]2.8 {ratio} NormalKing'S Daughters Medical Center OhioComment on above:Performed By: #### LIPID, BMP, LIVER, TSH #### [facility] [address] [place] [address] Dr. Alonzo Lowry NORMAL> or = 60 mg/dl - LOW CARDIOVASCULAR RISK <40 mg/dl - HIGH CARDIOVASCULAR RISKDoctors HospitalComment on above:Performed By: #### LIPID, BMP, LIVER, TSH #### [facility] [address] [address] [address] Alonzo Kumar CALC NORMALSEE BELOWDoctors HospitalComment on above:Result Comment: <100 mg/dl OPTIMAL 100 - 129 mg/dl NEAR OR ABOVE OPTIMAL 130 - 159 mg/dl BORDERLINE HIGH 160 - 189 mg/dl HIGH >190 mg/dl VERY HIGH Performed By: #### LIPID, BMP, LIVER, TSH #### [facility] [address] [address] [address] Alonzo BurciagaTriglyceride [Mass/Vol]69 mg/dLNormal<=150The [facility] Comment on above:Performed By: #### LIPID, BMP, LIVER, TSH #### [facility] [address] [address] [address] Alonzo BurciagaVLDL CALC13.8 mg/dLNormalThe [facility] HospitalComment on above: Performed By: #### LIPID, BMP, LIVER, TSH #### [facility] [address] [address] [address] Alonzo Dunabr PROFILEon 10-92-5733Zkgqcaa [Mass/Vol]3.1 g/dLCritically low3.5-5.0The [facility] HospitalComment on above:Performed By: #### LIPID, BMP, LIVER, TSH #### [facility] [address] [address] [address] Alonzo BurciagaAlbumin/Globulin [Mass ratio]0.7 {ratio}NormalThe [facility] HospitalComment on above:Performed By: #### LIPID, BMP, LIVER, TSH #### [facility] [address] [address] [address] Alonzo Rodriguez [Catalytic activity/Vol]57 U/LZcyrpy47-014Chg [facility] HospitalComment on above:Performed By: #### LIPID, BMP, LIVER, TSH #### [facility] [address] [address] [address] Alonzo Moffett [Catalytic activity/Vol]22 U/LNormal9-52The [facility] Comment on above:Performed By: #### LIPID, BMP, LIVER, TSH #### [facility] [address] [address] [address] Alonzo Daley [Catalytic activity/Vol]19 U/FJfdrtp62-49Ppz [facility] HospitalComment on above:Performed By: #### LIPID, BMP, LIVER, TSH #### [facility] [address] [address] [address] Alonzo Ramirez, CONJUGATED<0.6Sgsvwf3.0-0.3The [facility] HospitalComment on above:Performed By: #### LIPID, BMP, LIVER, TSH #### [facility] [address] [address] [address] Alonzo BurciagaBilirubin [Mass/Vol]0.3 mg/dLNormal0.2-1.3TSt. [facility] Comment on above:Performed By: #### LIPID, BMP, LIVER, TSH #### [facility] [address] [place] [address] Dr. Alonzo BurciagaGlobulin (S) [Mass/Vol]4.3 g/dLNormalThe [facility] HospitalComment on above:Performed By: #### LIPID, BMP, LIVER, TSH #### [facility] [address] [place] [address] Dr. Alonzo BurciagaProtein [Mass/Vol]7.4 g/dLNormal6.1-8.2[facility] [place] Comment on above:Performed By: #### LIPID, BMP, LIVER, TSH #### [facility] [address] [place] [address] Dr. Alonzo BurciagaPROF CHEM 8 (BAS METB)on 92-26-7795Tkchs gap [Moles/Vol]11.6 mmol/LNormalKing'S Daughters Medical Center OhioComment on above:Performed By: #### LIPID, BMP, LIVER, TSH #### [facility] [address] [place] [address] Dr. Alonzo BurciagaCalcium [Mass/Vol]8.7 mg/dLNormal8.4-10.2[facility] [place] Comment on above:Performed By: #### LIPID, BMP, LIVER, TSH #### [facility] [address] [place] [address] Dr. Alonzo BurciagaChloride [Moles/Vol]106 mmol/ERhlchg46-350Ukz [facility] Comment on above:Performed By: #### LIPID, BMP, LIVER, TSH #### [facility] [address] [place] [address] Dr. Alonzo BurciagaCO2 [Moles/Vol]27.2 mmol/XGdjzuh12.0-30.0[facility] [place] Comment on above:Performed By: #### LIPID, BMP, LIVER, TSH #### [facility] [address] [address] [address] Alonzo BurciagaCreatinine [Mass/Vol]0.66 mg/dLNormal0.52-1.04The [facility] HospitalComment on above:Performed By: #### LIPID, BMP, LIVER, TSH #### [facility] [address] [address] [address] Alonzo GomesGFR-AF VINCENTIAN>60Normal>=60The [facility] HospitalComment on above:Performed By: #### LIPID, BMP, LIVER, TSH #### [facility] [address] [address] [address] Alonzo Vieyra-NON AF VINCENTIAN>60Normal>=60The [facility] HospitalComment on above:Performed By: #### LIPID, BMP, LIVER, TSH #### [facility] [address] [place] [address] Dr. Alonzo BurciagaGlucose [Mass/Vol]82 mg/zTChdbxh57-271LdmKing'S Daughters Medical Center [place] Comment on above:Performed By: #### LIPID, BMP, LIVER, TSH #### [facility] [address] [place] [address] Dr. Alonzo BurciagaPotassium [Moles/Vol]3.8 mmol/LNormal3.4-5.0[facility] [place] Comment on above:Performed By: #### LIPID, BMP, LIVER, TSH #### [facility] [address] [place] [address] Dr. Alonzo Garciadium [Moles/Vol]141 mmol/KOmhnin277-754XyzKing'S Daughters Medical Center [place] Comment on above:Performed By: #### LIPID, BMP, LIVER, TSH #### [facility] [address] [place] [address] Dr. Alonzo BurciagaUrea nitrogen [Mass/Vol]7.0 mg/dLNormal7.0-17.0The [facility] HospitalComment on above:Performed By: #### LIPID, BMP, LIVER, TSH #### [facility] [address] [place] [address] Dr. Alonzo Diaz nitrogen/Creatinine [Mass ratio]10.6 mg/mgDoctors HospitalCommclaren central [place] on above:Performed By: #### LIPID, BMP, LIVER, TSH #### [facility] [address] [place] [address] Dr. Alonzo PadillaHoayaka 84-45-6154BLK0.502 uIU/mLNormal0.470-4.680[facility] [place]Commclaren [facility] [place] on above:Performed By: #### LIPID, BMP, LIVER, TSH #### [facility] [address] [place] [address] Dr. Alonzo GILLProMedica Toledo HospitalCommclaren [facility] [place] on above: Result Comment: <0.34 UIU/ml HYPERTHYROID 0.34-5.60 UIU/ml EUTHYROID >5.60 UIU/ml HYPOTHYROIDPerformed By: #### LIPID, BMP, LIVER, TSH #### [facility] [address] [place] [address] Dr. Aolnzo BurciagaVITAMIN D 25 OHon 40-04-1668QLD D 25-OH<19.8Doctors HospitalCommclaren [facility] [place] on above:Performed By: #### VITAD #### [facility] [address] [place] [address] Dr. Alonzo Whiteside [facility] HospitalCommcl[facility] [place] on above: Result Comment: <20 ng/mL Vit D deficient 20 - <30 ng/mL Vit D insufficient 30 - 100 ng/mL Vit D sufficient >100 ng/mL Potential ToxicityPerformed By: #### VITAD #### [facility] [address] [place] [address] Dr. Alonzo Flores 05-07-9764FQEYALBXJTP ID: [id number] Author: Tracy Arnold (Tech) Service: Radiology Author Type: Hospice Care Consultant Type: Progress Notes Filed: 12/22/2019 2:00 PM Note Text: Radiology Service Progress Note PATIENT NAME: Neil Ma DATE OF SERVICE: December 22, 2019 TIME: 1:59 PM PATIENT IDENTITY VERIFICATION COMPLETED USING TWO (2) IDENTIFIERS: Name and Date of confirmed by patient verbally and Name and Date of confirmed by identification band. FALL SCREENING: Has the patient had 2 falls in the last year or 1 fall with injury or currently using an Ambulatory Assistive Device (Walker, Cane, Wheelchair, Crutches, etc.)? No PATIENT GENDER DATA: Female. status: : No status: NO. PATIENT RELEVANT IMPLANT DATA REVIEWED: Not Applicable RADIOLOGY DEPARTMENT: General X-ray: Exam(s) Completed: Spine X-Ray(s): Lumbar AP / LAT / L5-S1 PERIPHERAL IV DATA: Not applicable SIGNED BY: Tracy Arnold December 22, 2019 1:59 [facility]/LAT/L5-S1on 93-25-7522PE LUMBAR 3V AP/LAT/L5-S1* * *Final Report* * * DATE OF EXAM: Dec 22 2019 2:10PM VHX [id number] - XR LUMBAR 3V AP/LAT/L5-S1 / PROCEDURE REASON: Midline low back pain without sciatica, unspecified chronicity * * * * Physician Interpretation * * * * HISTORY: Midline low back pain without sciatica, unspecified chronicity . MIDLINE LOW BACK PAIN WITHOUT SCIATICA TECHNIQUE: XR LUMBAR 3V AP/LAT/L5-S1 Laterality: NOT APPLICABLE Number of different views (projections): 3 COMPARISON: None available. RESULT: Counting reference: Lumbosacral junction. For the purposes of this report, L4-5 is considered the level of the iliac crest and there are 5 lumbar-type vertebrae. Anatomic Variants: None. There is no evidence of acute spinal fracture or dislocation. There is normal alignment of the lumbar spine. The disc spaces are preserved. The facet joints are unremarkable. No other significant abnormality. IMPRESSION: Normal lumbar spine. Screen Making Technician: LAUREN Transcribe Date/Time: Dec 22 2019 4:17P Dictated by : THEODORA BENNETT MD This examination was interpreted and the report reviewed and electronically signed by: THEODORA BENNETT MD on Dec 22 2019 4:19PM EST [id number] Medical Center Clare Vital Signs Date TimeVital SignValuePerforming PqpemyyltGrutfdjh84-17-5676 14:41-0500Body ydmskq578.4 cmNolberto Mcgowan DPM Work Phone: [facility] CenterNfdldnmzik83-52-9511 14:41-0500Body mass index (BMI) [Ratio]40.15 kg/q2LcvmavkiNolberto Mcgowan DPM Work Phone: [facility] CenterUrcbqbuhni63-13-3648 14:41-0500Body uhqfeo775.13 kgNolberto Mcgowan DPM Work Phone: [facility] CenterPhbfmdvfbo45-80-4451 14:41-0500Respiratory rate18 /minNolberto Mcgowan DPM Work Phone: [facility] CenterNcjslfpiji73-99-8588 21:30-0400Heart rate78 /min Marciano Sarah [facility]03-28-2025 21:30-9781QaR3% (BldA) [Mass fraction]98 %Marciano Sarah [facility]03-28-2025 21:30-0400 Diastolic blood eqgvkqjw65 mm[Hg]Marciano Sarah [facility]03-28-2025 21:30-0400Mean blood tchzdwca40 mm[Hg]Marciano Sarah [facility]03-28-2025 21:30-0400 Systolic blood zfcisqtr772 mm[Hg]Marciano Sarah [facility]03-28-2025 21:09-0400Body tlmfvukvdgd86.24 [degF]Marciano Sarah [facility]03-28-2025 21:09-0400 Diastolic blood frxmoemg56 mm[Hg]Marciano Sarah [facility]03-28-2025 21:09-0400Heart rate81 /minMarciano Keara [facility]03-28-2025 21:09-0400 Respiratory rate20 /Mayra Sarah [facility]03-28-2025 21:09-8107VdC8% (BldA) [Mass fraction]99 %Marciano Sarah [facility]03-28-2025 21:09-0400 Systolic blood sthvgdpa952 mm[Hg]Marciano Sarah [facility]03-28-2025 18:57-0400Body .64 cmDavid Welsh MD Work Phone: [phone]03-28-2025 18:57-0400 Body txinshtkfzp93.5 [degF]David Welsh MD Work Phone: [phone]03-28-2025 18:57-0400 Body uybhuj267.15 kgDavid Welsh MD Work Phone: [phone]03-28-2025 18:57-0400 Diastolic blood dmlxmydp98 mm[Hg]David Welsh MD Work Phone: [phone]03-28-2025 18:57-0400 Heart rate96 /Rey Welsh MD Work Phone: [phone] [place], [place] 7743203-28-2025 18:57-0400 Respiratory rate20 /Rey Welsh MD Work Phone: [phone] [place], [place] 7743203-28-2025 18:57-0400 SaO2% (BldA) [Mass fraction]99 %David Welsh MD Work Phone: [phone] [place], [place] 7743203-28-2025 18:57-0400 Systolic blood vqcekjbw332 mm[Hg]David Welsh MD Work Phone: [phone]12-10-2024 14:06-0500 Body ajoemf226.6 cmDavid Welsh MD Work Phone: noCox BransonQvniocqbwn26-97-1654 14:06-0500Body mass index (BMI) [Ratio]42.93 kg/m2David Welsh MD Work Phone: noCox BransonHzclkztqyk42-94-6644 14:06-0500Body temperature 97.5 [degF]David Welsh MD Work Phone: noCox BransonNkjloeklwz20-98-6519 14:06-0500Body gteeey355.66 kgDavid Welsh MD Work Phone: noCox BransonBefpurgyop89-73-1288 14:06-0500Diastolic blood lfsbyikq19 mm[Hg]David Welsh MD Work Phone: noCox BransonMhbyuusgqc57-52-5213 14:06-0500Heart rate42 /min David Welsh MD Work Phone: noCox BransonOssjsuwqmw77-96-3921 14:06-0500Respiratory rate22 /minDavid Welsh MD Work Phone: noCox BransonDbxmtfnusb82-37-5258 14:06-5570TvC8% (BldA) [Mass fraction]97 %David Welsh MD Work Phone: noCox BransonPwxctnrfwq83-50-6052 14:06-0500Systolic blood iziufrqn106 mm[Hg]David Welsh MD Work Phone: [facility] Encounters Encounter DateEncounter TypeCare ProviderFacilityStart: 01-12-2025 End: 68-83-8511Ebzpog outpatient new 30 minutesNolberto Mcgowan DPM Work Phone: [facility]ella Amaro PodiatryComment on above:Pain due to onychomycosis of toenails of both feet (Primary Dx); OnychomycosisStart: 01-12-2025 End: 28-96-2222nlxnqqmzhhDDDFHLDH A BROWNNot AvailableStart: 01-12-2025 End: 24-50-9725Xzekezken Mcgowan DPM Work Phone: [facility]aro PodiatryStart: 01-12-2025 End: 57-04-8381Vgjclpken Mcgowan DPM Work Phone: [facility] Amaro PodiatryStart: 06-06-2024 End: 93-98-2576Hipckcvxa department patient visitnayla [facility] Start: 06-06-2024 End: 77-63-6222Wwupqpsxa department patient visitDavid Welsh MD Work Phone: [facility] Work Phone: Start: 02-19-2024 End: 06-01-4409guutynuijpXVOK NADERERNot AvailableStart: 02-19-2024 End: 90-96-7177Xvidac Renetta Welsh MD Work Phone: [facility] FMStart: 02-19-2024 End: 05-53-9955Dhaswwsamantha Welsh MD Work Phone: [facility] FMStart: 02-19-2024 End: 52-96-9305Ujmgvm outpatient visit 25 minutesDavid Welsh MD Work Phone: [facility] CWM FMComment on above:Benign essential hypertension (CMS/HCC) (Primary Dx); Fibromyalgia; Class 3 severe obesity due to excess calories with serious comorbidity and body mass index (BMI) of40.0 to 44.9 in adult (CMS/HCC); Hypersomnia; Dyslipidemia (CMS/HCC); Encounter for long-term (current) use of medications; Colon cancer screeningStart: 05-29-2023 End: 30-79-4512sultefwsqmGHRaine Welsh Work Phone: [facility] Work Phone: Start: 05-29-2023 End: 36-57-0990Czjatuy encounter procedureMD David Welsh Work Phone: [facility] Work Phone: Start: 11-29-2021 End: 69-66-6703ybwukmotkoPI DAVID Otto NADERERFacility:O6Kchfx: 29-82-2410Oxwpdzpts for general adult medical examination without abnormal findingsDR DAVID WELSH [facility]Start: 04-19-2021 End: 05-59-2772bsgxrqccrwDC DAVID Otto NADERERFacility:M4Qourg: 04-19-2021 End: 53-92-5275Sxjzexuzd for general adult medical examination without abnormal findingsDR DAVID Otto NADDARRENRFacility:H1 Procedures DateProcedureProcedure DetailPerforming ClinicianStart: 05-29-2023 End: 67-06-8552Hzatppeks mammography of bilateral breastsMD David Welsh Work Phone: Plan of Treatment DateCare ActivityDetailAuthorStart: 01-28-2025 End: 38-77-0368Kxqeoak encounter hvlkpnazt95/19/2025 9:00 AM EST Procedure Visit ANSELMO CAMEJO [address] [place] [id number] Yoly Pedroza, LEOBARDO [address] [place] [phone] NOMKoko [place] OBGYNStart: 01-12-2025 End: 13-67-7121Ifnhpad encounter hbwoswngx06/03/2025 2:40 PM EST Office Visit [facility] [address] [place] [address] Nolberto Mcgowan DPM [address] [address] [facility] Comment on above:ArrivedStart: 01-12-2025 End: 42-39-1971Caxlses aminotransferase [Enzymatic activity/volume] in Serum or PlasmaALANINE AMINOTRANSFERASE Lab Routine Onychomycosis Expected: 01/12/2025 (Approximate), Expires: 02/11/2025NO[facility] HealthcareComment on above:Expected: 01/12/2025 (Approximate), Expires: 02/11/2025Start: 01-12-2025 End: 63-63-9557Pyzumooez aminotransferase [Enzymatic activity/volume] in Serum or PlasmaASPARTATE AMINO TRANSFERASE Lab Routine Onychomycosis Expected: 01/12/2025 (Approximate), Expires: 02/11/2025[facility] Work Phone: Comment on above:Expected: 01/12/2025 (Approximate), Expires: 02/11/2025Start: 17-50-0498TYVDE-19 Vaccine ( season)COVID- 19 Vaccine ()[facility] HealthcareStart: 99-94-7163Fagnhwkpg vaccinationInfluenza Vaccine (#1)[facility] HealthcareStart: 92-33-8953Byzhxv scan of lower limb veinsUS venous duplex LE [facility] Centertart: 12-53-0045BnilemdtlMemorial Hospitaltart: 30-87-5139Vlllwwheq for malignant neoplasm of breastMammogramNOAZ HealthcareStart: 03-24-2024 End: 83-69-5403Goaugng encounter rwcjzywhy09/13/2025 1:45 PM EST Office Visit [facility] [address] [place] [phone] David Welsh MD [address] [place] [phone] NOMKoko CASTRO FMStart: 02-19-2024 End: 34-17-8188Nvdyq metabolic 1998 panel - Serum or PlasmaBasic metabolic panel Lab Routine Benign essential hypertension (CMS/HCC) Expected: 02/19/2024 (Appr oximate), Expires: 02/18/2025[facility] Work Phone: Comment on above:Expected: 02/19/2024 (Approximate), Expires: 02/18/2025Start: 02-19-2024 End: 45-50-8917YQW W Auto Differential panel - BloodCBC and differential Lab Routine Encounter for long-term (current) use of medications Expected: 02/09 (Approximate), Expires: 02/18/2025[facility] HealthcareComment on above: Expected: 02/19/2024 (Approximate), Expires: 02/18/2025Start: 02-19-2024 End: 77-98-8478Cgggdpcxtx A1c/Hemoglobin.total in BloodHemoglobin A1c Lab Routine Class 3 severe obesity due to excess calories with serious comorbidity and body mass index (BMI) of 40.0 to 44.9 in adult (CMS/HCC) Expected: 02/19/2024 (Approximate), Expires: 02/18/2025[facility] HealthcareComment on above: Expected: 02/19/2024 (Approximate), Expires: 02/18/2025Start: 02-19-2024 End: [id number] function 2000 panel - Serum or PlasmaHepatic function panel Lab Routine Encounter for long-term (current) use of medications Expected: 02/19/2024 (Approximate), Ex[facility]: [facility]/2025[facility] HealthcareComment on above: Expected: 02/19/2024 (Approximate), Expires: 02/18/2025Start: 02-19-2024 End: 46-74-6587Cprcg 1996 panel - Serum or PlasmaLipid panel Lab Routine Class 3 severe obesity due to excess calories with serious comorbidity and body mass index (BMI) of 40.0 to 44.9 in adult (CMS/HCC) Dyslipidemia (CMS/HCC) Expected: 02/19/2024(Approximate), Expires: 02/18/2025[facility] HealthcareComment on above: Expected: 02/19/2024 (Approximate), Expires: 02/18/2025Start: 02-19-2024 End: 13-20-5061BAI W/REFLEX TO FT4TSH W/REFLEX TO FT4 Lab Routine Class 3 severe obesity due to excess calories with serious comorbidity and body mass index (BMI) of 40.0 to 44.9 in adult (CMS/HCC) Expected: 02/19/2024 (Approximate), Expires: 02/18/2025[facility] HealthcareComment on above:Expected: 02/19/2024 (Approximate), Expires: 02/18/2025Start: 67-79-4700Tdqxfhbdo vaccination Influenza Vaccine (#1)[facility]Start: 43-09-8841Ftijbkglq for malignant neoplasm of cervixNOMS HealthcareStart: 67-67-1921Uwyjdzyye for malignant neoplasm of cervixPap SmearNOAZ HealthcareStart: 68-81-1191Rnynmgyap B Vaccines (1 of 3 - 19+ 3-dose series)Hepatitis B Vaccines (1 of 3 - 19+ 3-dose series) [facility]Start: 44-84-9363OVzF/Tdap/Td Vaccines (1 - Tdap)DTaP/Tdap/Td Vaccines (1 - Tdap)[facility]Start: 36-83-4491HBH Vaccines (1 of 1 - Standard series)MMR Vaccines (1 of 1 - Standard series)[facility] HealthcareStart: 15-80-9143Ighgoqdmi for malignant neoplasm of colonNOAZ Healthcare Albumin/Globulin ratioShelby Memorial HospitalAnion gap measurement [facility] HospitalaPTT in Platelet poor plasma by Coagulation assayShelby Memorial HospitalBasophils [#/volume] in Blood by Automated countShelby Memorial HospitalBasophils/100 leukocytes in Blood by Automated countShelby Memorial HospitalEosinophils/100 leukocytes in Blood by Automated countShelby Memorial HospitalErythrocyte distribution width [Ratio] by Automated countShelby Memorial Hospital Erythrocytes [#/volume] in [facility] AndersonGlobulin [Mass/volume] in SerumShelby Memorial HospitalHematocrit [Volume Fraction] of [facility] AndersonHemoglobin [Mass/volume] in [facility] AndersonINR in Platelet poor plasma by Coagulation assayShelby Memorial HospitalLeukocytes [#/volume] corrected for nucleated erythrocytes in Blood by Automated counShelby Memorial HospitalLeukocytes [#/volume] in [facility] AndersonLymphocytes [#/volume] in Blood by Automated countShelby Memorial Hospital Lymphocytes/100 leukocytes in Blood by Automated countShelby Memorial HospitalMCH [Entitic mass] by Automated [facility] MCHC [Mass/volume] by Automated [facility] CenterMCV [Entitic volume] by Automated [facility] CenterMonocytes [#/volume] in Blood by Automated [facility] Monocytes/100 leukocytes in Blood by Automated [facility] CenterNeutrophils [#/volume] in Blood by Automated [facility] CenterNeutrophils/100 leukocytes in Blood by Automated [facility] CenterNucleated erythrocytes [Presence] in Blood by Automated [facility] CenterPatient referralKnox Community Hospital Work Phone: Platelet mean volume [Entitic volume] in Blood by Automated [facility] CenterPlatelets [#/volume] in Blood [facility] HospitalProthrombin time (PT)[facility] Immunizations Immunization DateImmunizationNotesCare BmbstbjvZpqurday06-06-5303pxfbkyo toxoid, reduced diphtheria toxoid, and acellular pertussis vaccine, adsorbedMD Advid Haiderdavid Work Phone: [facility] Payers DatePayer CategoryPayerPolicy [id number] [id number]-[id number] Health InsuranceM[facility] [place] MEDICA[place] [id number] [id number] [id number] [id number] Social History DateTypeDetailFacilityStart: 12-29-2020 End: 21-18-1440Liaibpw smoking status NHISNever smoked tobacco (finding) [facility] Hospitaltart: 18-53-0106Ehe Assigned At BirthElyria Memorial Hospitaltart: 13-70-9283Ebgeovn use and exposure Smokeless tobacco non-userNOMS HealthcareStart: 08-20-2023 End: 27-78-4615Gswvohvmg beverage intakeLifetime non-drinker (finding)[facility] HealthcareStart: 05-14-2023 End: 10-18-4169Knvdyhm of Social functionNOMS HealthcareStart: 05-14-2023 End: 44-66-0571Rqnnjv connection and isolation panelNOMS HealthcareDo you belong to any clubs or organizations such as anglican groups, unions, fraternal or athletic groups, or school groups?YesNOMS HealthcareAre you now , , , , never or living with a partner?Never marriedNOMS HealthcareHow often to you have a drink containing alcohol?Monthly or lessNOMS HealthcareHow many standard drinks containing alcohol do you have on a typical day?1 or 2NOMS HealthcareHow often do you have 6 or more drinks on 1 occasion?NeverNOMS HealthcareHow hard is it for you to pay for the very basics like food, housing, medical care, and heatingSomewhat hardNOMS HealthcareDo you feel stress - tense, restless, nervous, or anxious, or unable to sleep at night because yourmind is troubled all the time - these days [OSQ]Only a littleNOMS Healthcare(I/We) worried whether (my/our) food would run out before (I/we) got money to buy more.Never trueNOMS HealthcareStart: 30-13-4088En the past 12 months, has lack of transportation kept you from medical appointments or from getting medications?NoNOMS HealthcareIn the past 12 months, was there a time when you were not able to pay the mortgage or rent on time?NoN[facility] Start: 09-35-3992Cpibgio Commentcaffeine intake : noneNOMS HealthcareStart: 41-77-9143Hwsnre identityIdentifies as female gender (finding)[facility] Start: 12-05-2018 End: 10-78-3799LgxPsvfbo (finding)[facility] HospitalTobacco smoking statusC[facility] Functional Status QnrcVpeoujnfmrVmyrirAiewibqx59-06-5984Udhhckglrc StatusN/AFPremier Health [facility] History of Present illness Narrative 01-12-2025 Note Date & TccnSuzyXmolnwrt23-56-8599 History of Present illness Narrative* Nolberto Mcgowan DPM - 01/12/2025 2:40 PM EST Patient: Neil Ma : 1975 PCP: David Welsh MD SUBJECTIVE This is a 49 y.o. female that presents today with a CC of elongated, thick nails. Pt states nails have been elongated and thick for many years and cause pain with ambulation in shoegear. Pt has tried previous treatment with minimal relief. Pt presents today for nail care and treatment. Allergies: Allergies[1] Past Medical History: Medical History[2] Medications: Current Medications[3] Social History: Social History Socioeconomic History Marital status: Unmarried Spouse name: Not on file Number of children: Not on file Years of education: Not on file Highest education level: Not on file Occupational History Not on file Tobacco Use Smoking status: Never Smokeless tobacco: Never Substance and Sexual Activity Alcohol use: Never Comment: caffeine intake : none Drug use: Never Sexual activity: Not on file Other Topics Concern Not on file Social History Narrative Not on file Social Drivers of Health Financial Resource Strain: Medium Risk (05/14/2023) Overall Financial Resource Strain (CARDIA) Difficulty of Paying Living Expenses: Somewhat hard Food Insecurity: No Food Insecurity (05/14/2023) Hunger Vital Sign Worried About Running Out of Food in the Last Year: Never true Ran Out of Food in the Last Year: Never true Transportation Needs: No Transportation Needs (05/14/2023) PRAPARE - Transportation Lack of Transportation (Medical): No Lack of Transportation (Non-Medical): No Physical Activity: Sufficiently Active (05/14/2023) Exercise Vital Sign Days of Exercise per Week: 6 days Minutes of Exercise per Session: 30 min Stress: No Stress Concern Present (05/14/2023) [employer] - Occupational Stress Questionnaire Feeling of Stress : Only a little Social Connections: Moderately Integrated (05/14/2023) Social Connection and Isolation Panel Frequency of Communication with Friends and Family: More than three times a week Frequency of Social Gatherings with Friends and Family: More than three times a week Attends Hinduism Services: More than 4 times per year Active Member of Clubs or Organizations: Yes Attends Club or Organization Meetings: 1 to 4 times per year Marital Status: Never Intimate Partner Violence: Not on file Housing Stability: Low Risk (05/14/2023) Housing Stability Vital Sign Unable to Pay for Housing in the Last Year: No Number of Places Lived in the Last Year: 1 Unstable Housing in the Last Year: No ROS: General: denies fever, chills, fatigue, malaise Gastrointestinal: denies abdominal pain, ulcers, or changes in appetite or bowel habits Musculoskeletal: denies arthritis, denies loss of strength, pain to hip, knees, back Cardiovascular: denies CP, palpitations, irregular rhythms OBJECTIVE LE EXAM: DERM: Elongated thick yellow crumbly nails digits 1 through 10. Positive hair growth b/l feet. VASC: Positive palpable pedal pulses bilaterally NEURO: Gross sensation intact to bilateral feet ORTHO: Positive pain on palpation to toenails of the left 1,2,3,4,5 toes and right 1,2,3,4,5 toes ASSESSMENT 1. Pain due to onychomycosis of toenails of both feet PLAN Patient education today with discussing diagnosis and treatment options for patient including risksand benefits of lamisil medication including liver interactions, side effects, and possible non resolution of nail fungus. Rx for lamisil x 30 d Rx for lfts today Pt to contact podiatry if any problems RTC one month Nolberto Mcgowan DPM [1] Allergies Allergen Reactions Penicillins Unknown [2] Past Medical History: Diagnosis Date Fibromyalgia Hx of being hospitalized emergency blood transfusion Hx of blood clots superficical leg blood clots Seizure disorder (HCC) [3] Current Outpatient Medications: DULoxetine (Cymbalta) [address] capsule, TAKE 1 CAPSULE BY MOUTH EVERY DAY, Disp: 30 capsule, Rfl: 11 losartan-hydroCHLOROthiazide (Hyzaar) 50-12.5 MG tablet, TAKE 1 TABLET BY MOUTH EVERY DAY, Disp: 30tablet, Rfl: 1 documented in [facility]Saint [facility] Dis[facility] instructions 06-07-2024 Note Date & JkbuKwaxRurotwmu44-43-5376 Hospital Discharge instructions Patient Education 06/06/2024 22:29:37 Varicose Veins Varicose Veins Varicose veins are veins that have become enlarged, bulged, and twisted. They most often appear in the legs. What are the causes? This condition is caused by damage to the valves in the vein. These valves help blood return to your heart. When they are damaged and they stop working properly, blood may flow backward and back up in the veins near the skin, causing the veins to get larger and appear twisted. The condition can result from any issue that causes blood to back up, like , prolonged standing, or obesity. What increases the risk? The following factors may make you more likely to develop this condition: Being on your feet a lot. Being . Being overweight. Smoking. Having had a previous deep vein thrombosis or having a thrombotic disorder. Aging. The risk increases with age. Having a condition called Klippel Trenaunay syndrome. What are the signs or symptoms? Symptoms of this condition include: Bulging, twisted, and bluish veins. A feeling of heaviness in your legs. This may be worse at the end of the day. Leg pain. This may be worse at the end of the day. Swelling in the leg. Changes in skin color over the veins. Swelling or pain in the legs can limit your activities. Your symptoms may get worse when you sit orstand for long periods of time. How is this diagnosed? This condition may be diagnosed based on: Your symptoms, family history, activity levels, and lifestyle. A physical exam. You may also have tests, including an ultrasound or X-ray. How is this treated? Treatment for this condition may involve: Avoiding sitting or standing in one position for long periods of time. Wearing compression stockings. These stockings help to prevent blood clots and reduce swelling in the legs. Raising (elevating) the legs when resting. Losing weight. Exercising regularly. If you have persistent symptoms or want to improve the way your varicose veins look, you may chooseto have a procedure to close the varicose veins off or to remove them. Nonsurgical treatments to close off the veins include: Sclerotherapy. In this treatment, a solution is injected into a vein to close it off. Laser treatment. The vein is heated with a laser to close it off. Radiofrequency vein ablation. An electrical current produced by radio waves is used to close off the vein. Surgical treatments to remove the veins include: Phlebectomy. In this procedure, the veins are removed through small incisions made over the veins. Vein ligation and stripping. In this procedure, incisions are made over the veins. The veins are then removed after being tied (ligated) with stitches (sutures). Follow these instructions at home: Medicines Take fgjz-sbu-rpyqvzo and prescription medicines only as told by your health care provider. If you were prescribed an antibiotic medicine, use it as told by your health care provider. Do not stop using the antibiotic even if you start to feel better. Activity Walk as much as possible. Walking increases blood flow. This helps blood return to the heart and takes pressure off your veins. Do not stand or sit in one position for a long period of time. Do not sit with your legs crossed. Avoid sitting for a long time without moving. Get up to take short walks every 1 2 hours. This is important to improve blood flow and breathing. Ask for help if you feel weak or unsteady. Return to your normal activities as told by your health care provider. Ask your health care provider what activities are safe for you. Do exercises as told by your health care provider. General instructions Follow any diet instructions given to you by your health care provider. Elevate your legs at night to above the level of your heart. If you get a cut in the skin over the varicose vein and the vein bleeds: ?Lie down with your leg raised. ?Apply firm pressure to the cut with a clean cloth until the bleeding stops. ?Place a bandage (dressing) on the cut. Drink enough fluid to keep your urine pale yellow. Do not use any products that contain nicotine or tobacco. These products include cigarettes, chewing tobacco, and vaping devices, such as e-cigarettes. If you need help quitting, ask your health careprovider. Wear compression stockings as told by your health care provider. Do not wear other kinds of tight clothing around your legs, pelvis, or waist. Keep all follow-up visits. This is important. Contact a health care provider if: The skin around your varicose veins starts to break down. You have more pain, redness, tenderness, or hard swelling over a vein. You are uncomfortable because of pain. You get a cut in the skin over a varicose vein and it will not stop bleeding. Get help right away if: You have chest pain. You have trouble breathing. You have severe leg pain. Summary Varicose veins are veins that have become enlarged, bulged, and twisted. They most often appear in the legs. This condition is caused by damage to the valves in the vein. These valves help blood return to your heart. Treatment for this condition includes frequent movements, wearing compression stockings, losing weight, and exercising regularly. In some cases, procedures are done to close off or remove the veins. Nonsurgical treatments to close off the veins include sclerotherapy, laser therapy, and radiofrequency vein ablation. This information is not intended to replace advice given to you by your health care provider. Make sure you discuss any questions you have with your health care provider. Document Revised: 08/10/2021 Document Reviewed: 08/10/2021 [employer] Patient Education 2023 [employer] 06/06/2024 22:29:37 Peripheral Edema Peripheral Edema Peripheral edema is swelling that is caused by a buildup of fluid. Peripheral edema most often affects the lower legs, ankles, and feet. It can also develop in the arms, hands, and face. The area of the body that has peripheral edema will look swollen. It may also feel heavy or warm. Your clothes may start to feel tight. Pressing on the area may make a temporary dent in your skin (pitting edema).You may not be able to move your swollen arm or leg as much as usual. There are many causes of peripheral edema. It can happen because of a complication of other conditions such as heart failure, kidney disease, or a problem with your circulation. It also can be a sideeffect of certain medicines or happen because of an infection. It often happens to women during . Sometimes, the cause is not known. Follow these instructions at home: Managing pain, stiffness, and swelling Raise (elevate) your legs while you are sitting or lying down. Move around often to prevent stiffness and to reduce swelling. Do not sit or stand for long periods of time. Do not wear tight clothing. Do not wear garters on your upper legs. Exercise your legs to get your circulation going. This helps to move the fluid back into your bloodvessels, and it may help the swelling go down. Wear compression stockings as told by your health care provider. These stockings help to prevent blood clots and reduce swelling in your legs. It is important that these are the correct size. These stockings should be prescribed by your doctor to prevent possible injuries. If elastic bandages or wraps are recommended, use them as told by your health care provider. Medicines Take zlzw-evp-ioaisqz and prescription medicines only as told by your health care provider. Your health care provider may prescribe medicine to help your body get rid of excess water (diuretic). Take this medicine if you are told to take it. General instructions Eat a low-salt (low-sodium) diet as told by your health care provider. Sometimes, eating less salt may reduce swelling. Pay attention to any changes in your symptoms. Moisturize your skin daily to help prevent skin from cracking and draining. Keep all follow-up visits. This is important. Contact a health care provider if: You have a fever. You have swelling in only one leg. You have increased swelling, redness, or pain in one or both of your legs. You have drainage or sores at the area where you have edema. Get help right away if: You have edema that starts suddenly or is getting worse, especially if you are or have a medical condition. You develop shortness of breath, especially when you are lying down. You have pain in your chest or abdomen. You feel weak. You feel like you will faint. These symptoms may be an emergency. Get help right away. Call 911. Do not wait to see if the symptoms will go away. Do not drive yourself to the hospital. Summary Peripheral edema is swelling that is caused by a buildup of fluid. Peripheral edema most often affects the lower legs, ankles, and feet. Move around often to prevent stiffness and to reduce swelling. Do not sit or stand for long periodsof time. Pay attention to any changes in your symptoms. Contact a health care provider if you have edema that starts suddenly or is getting worse, especially if you are or have a medical condition. Get help right away if you develop shortness of breath, especially when lying down. This information is not intended to replace advice given to you by your health care provider. Make sure you discuss any questions you have with your health care provider. Document Revised: 10/31/2021 Document Reviewed: 10/31/2021 [employer] Patient Education 2023 [email or web address]. Follow Up Care 06/06/2024 21:06:34 With:DAVID WELSH Address: [address] [place], [place] [address] [id number] Business (1) When:06/09/2024 Comments:Call Dr for diagnosis based follow up [facility] Clinical Note 06-06-2024 Note Date & HqaoRdgnFicjewpq80-10-1299 NoteED Patient Education Note Cardiovascular Varicose Veins Varicose veins are veins that have become enlarged, bulged, and twisted. They most often appear in the legs. What are the causes? This condition is caused by damage to the valves in the vein. These valves help blood return to your heart. When they are damaged and they stop working properly, blood may flow backward and back up in the veins near the skin, causing the veins to get larger and appear twisted. The condition can result from any issue that causes blood to back up, like , prolonged standing, or obesity. What increases the risk? The following factors may make you more likely to develop this condition: ??? Being on your feet a lot. ??? Being . ??? Being overweight. ??? Smoking. ??? Having had a previous deep vein thrombosis or having a thrombotic disorder. ??? Aging. The risk increases with age. ??? Having a condition called Klippel?Trenaunay syndrome. What are the signs or symptoms? Symptoms of this condition include: ??? Bulging, twisted, and bluish veins. ??? A feeling of heaviness in your legs. This may be worse at the end of the day. ??? Leg pain. This may be worse at the end of the day. ??? Swelling in the leg. ??? Changes in skin color over the veins. Swelling or pain in the legs can limit your activities. Your symptoms may get worse when you sit orstand for long periods of time. How is this diagnosed? This condition may be diagnosed based on: ??? Your symptoms, family history, activity levels, and lifestyle. ??? A physical exam. You may also have tests, including an ultrasound or X-ray. How is this treated? Treatment for this condition may involve: ??? Avoiding sitting or standing in one position for long periods of time. ??? Wearing compression stockings. These stockings help to prevent blood clots and reduce swelling in the legs. ??? Raising (elevating) the legs when resting. ??? Losing weight. ??? Exercising regularly. If you have persistent symptoms or want to improve the way your varicose veins look, you may chooseto have a procedure to close the varicose veins off or to remove them. Nonsurgical treatments to close off the veins include: ??? Sclerotherapy. In this treatment, a solution is injected into a vein to close it off. ??? Laser treatment. The vein is heated with a laser to close it off. ??? Radiofrequency vein ablation. An electrical current produced by radio waves is used to close off the vein. Surgical treatments to remove the veins include: ??? Phlebectomy. In this procedure, the veins are removed through small incisions made over the veins. ??? Vein ligation and stripping. In this procedure, incisions are made over the veins. The veins are then removed after being tied (ligated) with stitches (sutures). Follow these instructions at home: Medicines ??? Take nruo-qbe-hffopvs and prescription medicines only as told by your health care provider. ??? If you were prescribed an antibiotic medicine, use it as told by your health care provider. Do not stop using the antibiotic even if you start to feel better. Activity ??? Walk as much as possible. Walking increases blood flow. This helps blood return to the heart and takes pressure off your veins. ??? Do not stand or sit in one position for a long period of time. ??? Do not sit with your legs crossed. ??? Avoid sitting for a long time without moving. Get up to take short walks every 1?2 hours. This is important to improve blood flow and breathing. Ask for help if you feel weak or unsteady. ??? Return to your normal activities as told by your health care provider. Ask your health care provider what activities are safe for you. ??? Do exercises as told by your health care provider. General instructions ??? Follow any diet instructions given to you by your health care provider. ??? Elevate your legs at night to above the level of your heart. ??? If you get a cut in the skin over the varicose vein and the vein bleeds: ? Lie down with your leg raised. ? Apply firm pressure to the cut with a clean cloth until the bleeding stops. ? Place a bandage (dressing) on the cut. ??? Drink enough fluid to keep your urine pale yellow. ??? Do not use any products that contain nicotine or tobacco. These products include cigarettes, chewing tobacco, and vaping devices, such as e-cigarettes. If you need help quitting, ask your health care provider. ??? Wear compression stockings as told by your health care provider. Do not wear other kinds of tight clothing around your legs, pelvis, or waist. ??? Keep all follow-up visits. This is important. Contact a health care provider if: ??? The skin around your varicose veins starts to break down. ??? You have more pain, redness, tenderness, or hard swelling over a vein. ??? You are uncomfortable because of pain. ??? You get a cut in the skin over a varicose vein and i (more content not included)...[facility] Evaluation + Plan note 06-06-2024 Note Date & [id number] Evaluation + Plan noteExtracted from: Title:ED NoteAuthor:Jani MIRANDA, Chris LainezDate:06/06/24 Left leg pain (M79.605: Pain in left leg) Orders: US Lower Extremity Venous Duplex Left [facility] History of Present illness Narrative 02-19-2024 Note Date & [id number] History of Present illness Narrative* David Welsh MD - 02/19/2024 2:30 PM ESTAssociated Problem(s): Hypersomnia Signs of JULIA and check sleep study. * David Welsh MD - 02/19/2024 2:30 PM ESTAssociated Problem(s): Fibromyalgia Pain stable and continue cymbalta. Increase activity and walk regularly. * David Welsh MD - 02/19/2024 2:29 PM ESTAssociated Problem(s): Class 3 severe obesity due to excess calories with serious comorbidity and body mass index (BMI) of 40.0 to 44.9 in adult (CMS/HCC) Discussed proper diet and regular aerobic exercise. Recommend Weight Watchers and need to limit calories and smaller portions. Need to increase activity and regular aerobic exercise several days a week for 30 minutes at a time. * David Welsh MD - 02/19/2024 2:29 PM ESTAssociated Problem(s): Benign essential hypertension (CMS/HCC) BP elevated and resume medication. Need to monitor PRN. Discussed DASH diet. * David Welsh MD - 02/19/2024 2:00 PM EST Images from the original note were not included. Subjective Patient ID: Neil Ma is a 49 y.o. female who presents for Follow- up (6 m). Follow up HTN and fibromyalgia. Stopped HTN medication about 1 month ago. Previously checking BP and normal but hasn't checked for several weeks. BP 176/94 today. Feels lightheaded and mild SOB. Fibromyalgia pain stable. Pain in back, legs, and arms. Increased sensitivity to light touch. Pain with activity and exercise. Taking cymbalta and helps. Able to work and stay active. Concerned of JULIA. Snores loudly and told stops breathing during sleep. Occasionally wakes up gasping. Wakes up often andnot rested in am. Tired all day. Never had colon cancer screening and willing to have colonoscopy. Review of Systems Respiratory: Negative for cough, shortness of breath and wheezing. Cardiovascular: Negative for chest pain and palpitations. Gastrointestinal: Negative for abdominal pain, diarrhea, nausea and vomiting. Genitourinary: Negative for dysuria. Objective Physical Exam Constitutional: General: She is not in acute distress. Appearance: Normal appearance. HENT: Head: Normocephalic. Right Ear: Tympanic membrane normal. Left Ear: Tympanic membrane normal. Eyes: Extraocular Movements: Extraocular movements intact. Pupils: Pupils are equal, round, and reactive to light. Cardiovascular: Rate and Rhythm: Normal rate and regular rhythm. Heart sounds: No murmur heard. No friction rub. No gallop. Pulmonary: Effort: Pulmonary effort is normal. Breath sounds: Normal breath sounds. No wheezing, rhonchi or rales. Abdominal: General: Bowel sounds are normal. There is no distension. Palpations: Abdomen is soft. Tenderness: There is no abdominal tenderness. There is no guarding or rebound. Musculoskeletal: Cervical back: Neck supple. Right lower leg: No edema. Left lower leg: No edema. Neurological: Mental Status: She is alert. Assessment/Plan Problem List Items Addressed This Visit Fibromyalgia Pain stable and continue cymbalta. Increase activity and walk regularly. Benign essential hypertension (CMS/HCC) - Primary BP elevated and resume medication. Need to monitor PRN. Discussed DASH diet. Relevant Medications losartan-hydroCHLOROthiazide (Hyzaar) 50-12.5 MG tablet Other Relevant Orders Basic metabolic panel Class 3 severe obesity due to excess calories with serious comorbidity and body mass index (BMI) of40.0 to 44.9 in adult (CMS/HCC) Discussed proper diet and regular aerobic exercise. Recommend Weight Watchers and need to limit calories and smaller portions. Need to increase activity and regular aerobic exercise several days a week for 30 minutes at a time. Relevant Orders Lipid panel Hemoglobin A1c TSH W/REFLEX TO FT4 Hypersomnia Signs of JULIA and check sleep study. Dyslipidemia (CMS/HCC) Relevant Orders Lipid panel Other Visit Diagnoses Encounter for long-term (current) use of medications Relevant Orders CBC and differential Hepatic function panel Colon cancer screening Relevant Orders Ambulatory [facility] note Note Date & TypeNoteFacilityEvaluation noteNo assessment information available [facility] Work Phone: Evaluation note Note Date & TypeNoteFacilityEvaluation note* Diagnosis Benign essential hypertension (CMS/HCC)- Primary Essential hypertension, benign Fibromyalgia Unspecified myalgia and myositis Breast cancer screening by mammogram Colon cancer screening Special screening for malignant neoplasms, colon Morbid obesity due to excess calories (CMS/HCC) Hypersomnia Hypersomnia, unspecified Body mass index [BMI] 40.0-44.9, adult (Z68.41) Vitamin D deficiency Annual physical exam Routine general medical examination at a health care facility Lipoma of torso Benign essential hypertension (CMS/HCC)- Primary Essential hypertension, benign Fibromyalgia Unspecified myalgia and myositis Hypersomnia Hypersomnia, unspecified Morbid obesity due to excess calories (CMS/HCC) Cough due to AMOL inhibitor Benign essential hypertension (CMS/HCC)- Primary Essential hypertension, benign Fibromyalgia Unspecified myalgia and myositis Benign essential hypertension (CMS/HCC)- Primary Essential hypertension, benign Fibromyalgia Unspecified myalgia and myositis Class 3 severe obesity due to excess calories with serious comorbidity and body mass index (BMI) of40.0 to 44.9 in adult (CMS/HCC) Hypersomnia Hypersomnia, unspecified Dyslipidemia (CMS/HCC) Other and unspecified hyperlipidemia Encounter for long-term (current) use of medications Encounter for long-term (current) use of other medications Colon cancer screening Special screening for malignant neoplasms, colon documented in this encounter [facility] Evaluation note Note Date & TypeNoteFacilityEvaluation note* Diagnosis Benign essential hypertension- Primary Essential hypertension, benign Fibromyalgia Unspecified myalgia and myositis Breast cancer screening by mammogram Colon cancer screening Special screening for malignant neoplasms, colon Morbid obesity due to excess calories ([facility]) Hypersomnia Hypersomnia, unspecified Body mass index [BMI] 40.0-44.9, adult (Z68.41) Vitamin D deficiency Annual physical exam Routine general medical examination at a [facility] facility Lipoma of torso Benign essential hypertension- Primary Essential hypertension, benign Fibromyalgia Unspecified myalgia and myositis Hypersomnia Hypersomnia, unspecified Morbid obesity due to excess calories ([facility]) Cough due to AMOL inhibitor Benign essential hypertension- Primary Essential hypertension, benign Fibromyalgia Unspecified myalgia and myositis Benign essential hypertension- Primary Essential hypertension, benign Fibromyalgia Unspecified myalgia and myositis Class 3 severe obesity due to excess calories with serious comorbidity and body mass index (BMI) of40.0 to 44.9 in adult ([facility]) Hypersomnia Hypersomnia, unspecified Dyslipidemia Other and unspecified hyperlipidemia Encounter for long-term (current) use of medications Encounter for long-term (current) use of other medications Colon cancer screening Special screening for malignant neoplasms, colon Pain due to onychomycosis of toenails of both feet- Primary Onychomycosis Dermatophytosis of nail documented in this encounter [facility] Hospital course Narrative Note Date & TypeNoteFacilityHospital course Narrative No data available for this section [facility] Progress note Note Date & TypeNoteFacilityProgress note No data available for this section [facility] Summary Purpose Family History No Family History Records FoundNo Family History Records Found No data available for this section No Family History Records FoundNo Family History Records FoundNo Family History Records Found Advance Directives No Advanced Directives Records Found Advance Directive Response Recorded Date/ Time Advance Directives No December 11, 2016 9:56am Chief Complaint and Reason for Visit Chief Complaint z12.31 Chief Complaint Admit Date lt leg pain March 28th, 2025 6:5 3pm Additional Source Comments INFORMATION SOURCE (unrecogn ized section and content) DATE CREATED AUTHOR 12/23/2019 [facility] DATE CREATED AUTHOR AUTHOR'S ORGANIZ ATION 01/19/2022 [facility] DATE CREATED AUTHOR AUTHOR'S ORGANIZ ATION 06/10/2024 [facility] DATE CREATED AUTHOR AUTHOR'S ORGANIZ ATION 06/21/2024 [facility] DATE CREATED AUTHOR AUTHOR'S ORGANIZ ATION 01/13/2025 [facility] EPIC Care Teams (unrecognized sec tion and content) Team Status: Active Member Role Status Dates David Welsh MD Primary Care Provider Active Team Status: Inactive Member Role Status Dates David Welsh MD Primary Care Provide r, Attending Provider Active Start: May 29, 2023 End: May 29, 2023Team MemberRelationshipSpecialtyStart DateEnd Date David Welsh MD [address] [place] [phone] PCP - [facility]05/07/23 Krystle Lomeli, PA [address] [place] [address] [facility]06/11/23Team MemberRelationshipSpecialtyStart DateEnd Date David Welsh MD [address] [place] [id number] [facility] - [facility]05/07/23 Krystle Lomeli PA [address] [place] [address] PCP [facility]06/11/23 Team Status: Inactive Member Role Status Dates David Welsh MD Primary Care Provider Active S tart: June 06, 2024 End: June 06, 2024Danny Jones ProviderActiveStart: June 06, 2024 End: June 06, 2024Team MemberRelationshipSpecialtyStart DateEnd Date David Welsh MD [address] [place] [phone] PCP - [facility]05/07/23 David Welsh MD [address] [place] [address] [facility]03/12/24Team MemberRelationshipSpecialtyStart DateEnd Date David Welsh MD [address] [place] [phone] PCP - [facility]05/07/23 David Welsh MD [address] [place] [phone] [facility]03/12/24 Goals (unrecognized section and content) Goals may be documented in a n alternate sectionGoals may be documented in an alternate section No data available for this section Reason for Visit (unrecogniz ed section and content) ReasonCommentsFollow-up6 mReasonCommentsToenail Problem FOR RECORDS PERTAINING TO PATIENTS WHO ARE OR HAVE BEEN ENROLLED IN A CHEMICAL DEPENDENCY/SUBSTANCEABUSE PROGRAM, SOME INFORMATION MAY BE OMITTED. This clinical summary was aggregated from multiple sources. Caution should be exercised in using it in the provision of clinical care. This summary normalizes information from multiple sources, and as a consequence, information in this document may materially change the coding, format and clinical context of patient data. In addition, data may be omitted in some cases. CLINICAL DECISIONS SHOULD BE BASED ON THE PRIMARY CLINICAL RECORDS. [facility]. provides no warranty or guarantee of the accuracy or completeness of information in this document.
--- OUTSIDE RECORDS SUMMARY | 2025-01-28 14:51 | XMS_ITS | Encounter Summary ---
Author Organization [facility] Address [address] [place] [address] Care Team Providers Care Prover Name Role Phone David Bello MD Primary Care Provider [phone] David Bello MD Unavailable Encounter Details DateTypeDepartmentCare Team (Latest Contact Info)Qmhictvklrq37/19/2025Bamboo flowsheet [facility] [place] [facility] [address] [place] [address] Yoly Pedroaz, LEOBARDO [address] [place] [address] Social History Tobacco UseTypesPacks/DayYears UsedDateSmoking Tobacco: NeverSmokeless [...] a week 05/14/2023How often do you attend faith or spiritism services?More than 4 times per year05/14/2023o you belong to any clubs or organizations such as faith groups, unions, fraternal or athletic groups, or school groups?Yes05/14/2023How often do you attend meetings of the clubs or organizations you belong to?1 to 4 times per year05/14/2023re you , , , , never , or living with a partner?Never sbtuvwx7105/14/2023UDIT-CAnswerDate RecordedQ1: How often do you have a [...] care, and heating?Somewhat hard05/14/2023HQ-2AnswerDate RecordedPatient Health Questionnaire-2 Szuer150[facility] [place] [facility] Occup[facility] Health - Occupational Stress QuestionnaireAnswerDate RecordedDo you feel stress - tense, restless, nervous, or anxious, or unable to sleep at night because yourmind is troubled all the time - these days?Only a dplbii7705/14/2023 Exercise Vital SignAnswerDate RecordedOn average, how many [...] or from getting things needed for daily living?No05/14/2023 Housing Stability Vital SignAnswerDate RecordedIn the last 12 months, was there a time when you were not able to pay the mortgage or rent on time?No05/14/2023In the last 12 months, how many places have you lived?In the last 12 months, was there a time when you did not have a steady place to sleep or slept in ashelter (including now)?No4CommentsUnknownSex and Gender InformationValueDate RecordedSex Assigned at VqdmjHfgbpf21/26/2024 11:41 AM EST Legal QfzWbeokc62/15/2023 7:19 PM EDTGender ZmxekathPqniqx41/26/2024 11:41 AM ESTSexual OrientationNot on filedocumented as of this encounter Plan of Treatment DateTypeDepartmentCare Team (Latest Contact Info)Eadaslckuub71/08/2025 11:00 AM ESTOffice Visit [facility] [address] [place] [address] Nolberto Mcgowan, DPM [address] [address] documented as of this encounter Visit Diagnoses Not on filedocumented in this encounter Care Teams Team MemberRelationshipSpecialtyStart DateEnd Date David Bello MD [address] [place] [phone] [facility] David Bello MD [address] [place] [address] PCP - [facility]03/12/24documented as of this encounter
[2025-02-02 11:09] LABS: Age Gdln ACOG Testing Note (.); IGP, Aptima HPV, rfx 16/18,45 Note (.)
== END 2025-01-28 14:48 | disposition home or self-care (01) ==
LOC: LAB 14:47
PROVIDERS: PCP Family Medicine; Visit Provider Nurse Practitioner Family
DX: Z01.419 Encounter for gynecological examination (general) (routine) without abnormal findings (principal)
CPT/HCPCS: 87624; 88175